=== PATIENT | female | born 1960 | race Caucasian/White ===

== ENCOUNTER → 2019-12-22 | Outpatient (CLI) | payer BC ==
[~2019-12-22] MED LIST: ACET-1600 PO; ASCO100018 PO; ATOR40TA78 PO; CALC250T PO; CHOL10003 PO; CRAN1CAP13 PO; ESCI20TA10 PO; GABA600T7 PO; Iron PO; MULT-658 PO; OMEP-110 PO; VENL37.52 PO
[2019-12-22 14:31] LABS: BASOPHILS % (AUTO) 0 % (0-1); EOSINOPHILS % (AUTO) 2 % (1-7); LYMPHOCYTES % (AUTO) 32 % (22-44); MEAN CORPUSCULAR HEMOGLOBIN 30.7 pg (27.0-34.8); MEAN CORPUSCULAR HGB CONC 33.3 g/dL (32.4-35.8); MEAN PLATELET VOLUME 7.8 fL (7.4-10.4); MONOCYTES % (AUTO) 12 % (2-9); NEUTROPHILS % (AUTO) 53 % (42-75); PLATELET COUNT 299 x10^3/uL (130-400); RED BLOOD COUNT 4.77 x10^6/uL (3.82-5.3); RED CELL DISTRIBUTION WIDTH 13.2 % (9.6-15.2)
[2019-12-22 14:32] LABS: MD NO
[2019-12-22 14:42] LABS: INTERNATIONAL NORMALIZED RATIO 1.01 (0.93-1.1); PROTHROMBIN TIME 10.7 Seconds (9.6-11.5)
[2019-12-22 14:43] LABS: ALANINE AMINOTRANSFERASE 35 U/L (12-78); ALBUMIN 3.6 g/dL (3.4-5.0); ANION GAP 4 mmol/L (5-15); CALCIUM 9.6 mg/dL (8.5-10.1); CHLORIDE 110 mmol/L (98-107); CREATININE 0.94 mg/dL (0.55-1.02)
[2019-12-22 14:44] LABS: ALKALINE PHOSPHATASE 163 U/L (45-117); BILIRUBIN,TOTAL 0.4 mg/dL (0.2-1.0); TOTAL PROTEIN 7.4 g/dL (6.4-8.2)
== END | disposition home or self-care (01) ==
LOC: STAR 13:09
PROVIDERS: ATTEND Obstetrics & Gynecology
DX: Z01.812 Encounter for preprocedural laboratory examination (principal); Z20.828 Contact with and (suspected) exposure to other viral communicable diseases; R19.09 Other intra-abdominal and pelvic swelling, mass and lump; N83.201 Unspecified ovarian cyst, right side; I44.7 Left bundle-branch block, unspecified
CPT/HCPCS: 36415; 71046; 80053; 85025; 85610; 85730; 86304; 87635; 93005

== ENCOUNTER 2019-12-27 05:32 | Day surgery (SDC) | payer BC ==
[~2019-12-27] VITALS: Ht 165.1 cm; Wt 128.1 kg
[2019-12-27 06:38] VITALS: BP 174/102
[2019-12-27] MEDS ORDERED: MIDAZOLAM 1 MG/ML, 2ML ONE (06:42)
[2019-12-27] MEDS ORDERED: FENTANYL PF 250 MCG/5ML ONE ×3 (06:43→09:11)
[2019-12-27] MEDS ORDERED: PHENYLEPHRINE 10 MG/ML ONE (06:49)
[2019-12-27] MEDS ORDERED: BUPIVACAINE/PF 0.25% ONE (06:56)
[2019-12-27] MEDS ORDERED: HEPARIN 1,000 UNITS/ML, 10ML ONE (06:57)
[2019-12-27] MEDS ORDERED: EPINEPHRINE 1 MG/ML, 1ML ONE (06:57)
[2019-12-27] MEDS ORDERED: INDOCYANINE GREEN 25 MG VIAL ONE (06:57)
[2019-12-27] MEDS ORDERED: CEFOTETAN PMX 2GM/50ML 50 ML IVPB ONE (07:00)
[2019-12-27] MEDS ORDERED: CHLORHEXIDINE 15 ML UDC MM ONE (07:00)
[2019-12-27] MEDS ORDERED: LACTATED RINGERS 1,000 ML IV SCH (07:00)
[2019-12-27 07:12] VITALS: BP 177/77
[2019-12-27] MEDS ORDERED: HYDROcodone/APAP 7.5-325MG/15ML UDC PO PRN (07:30)
[2019-12-27] MEDS ORDERED: PROMETHAZINE 25 MG/ML, 1ML IVPush PRN (07:30)
[2019-12-27] MEDS ORDERED: HALOPERIDOL 5 MG/ML IV PRN (07:30)
[2019-12-27] MEDS ORDERED: FENTANYL PF 100 MCG/2ML IV PRN (07:30)
[2019-12-27] MEDS ORDERED: MEPERIDINE/PF 25MG/0.5ML IVPush PRN (07:30)
[2019-12-27] MEDS ORDERED: OXYcodone 5 MG/5 ML ORAL.SOL UDC PO PRN (07:30)
[2019-12-27] MEDS ORDERED: HYDROmorphone 1 MG/ML, 1ML INJ IVPush PRN (07:30)
[2019-12-27] MEDS ORDERED: hydrALAzine 20 MG/ML, 1ML IV PRN (07:30)
[2019-12-27] MEDS ORDERED: ACETAMINOPHEN 325 MG TABLET PO PRN (07:30)
[2019-12-27] MEDS ORDERED: morphine SULFATE 10 MG/ML, 1ML IVPush PRN (07:30)
[2019-12-27] MEDS ORDERED: GLYCOPYRROLATE 0.2MG/1ML, 5ML ONE (08:16)
[2019-12-27] MEDS ORDERED: ROCURONIUM 10MG/ML,5ML ONE (08:16)
[2019-12-27] MEDS ORDERED: CEFAZOLIN 1,000 MG ONE (08:16)
[2019-12-27] MEDS ORDERED: PROPOFOL 10 MG/ML, 20ML ONE (08:16)
[2019-12-27] MEDS ORDERED: ONDANSETRON 2MG/ML, 2ML ONE (08:16)
[2019-12-27] MEDS ORDERED: DEXAMETHASONE 4 MG/ML, 1ML ONE (08:16)
[2019-12-27] MEDS ORDERED: NEOSTIGMINE 1 MG/ML, 10ML ONE (08:16)
[2019-12-27] MEDS ORDERED: KETOROLAC 30 MG/1 ML ONE (09:24)
[2019-12-27] MEDS ORDERED: LABETALOL 5MG/ML, 20ML ONE (10:13)
[2019-12-27] MEDS: LABETALOL 5MG/ML, 20ML IV PRN ×3 (10:14→10:46)
[2019-12-27] MEDS ORDERED: MEPERIDINE/PF 25MG/ML,1ML ONE (10:21)
[2019-12-27] MEDS ORDERED: hydrALAzine 20 MG/ML, 1ML ONE (11:05)
== END 2019-12-27 14:10 | disposition home or self-care (01) ==
LOC: OUT 05:32
PROVIDERS: ATTEND Obstetrics & Gynecology
DX: D27.0 Benign neoplasm of right ovary (principal); N80.0 Endometriosis of uterus; N73.6 Female pelvic peritoneal adhesions (postinfective); E78.5 Hyperlipidemia, unspecified; K21.9 Gastro-esophageal reflux disease without esophagitis; I10 Essential (primary) hypertension; E11.9 Type 2 diabetes mellitus without complications; F32.9 Major depressive disorder, single episode, unspecified; E03.9 Hypothyroidism, unspecified; E66.01 Morbid (severe) obesity due to excess calories; Z68.42 Body mass index [BMI] 45.0-49.9, adult; Z79.899 Other long term (current) drug therapy; Z85.820 Personal history of malignant melanoma of skin; Z87.891 Personal history of nicotine dependence; Z96.653 Presence of artificial knee joint, bilateral; Z98.890 Other specified postprocedural states; Z80.41 Family history of malignant neoplasm of ovary
CPT/HCPCS: 36415; 58552; 86850; 86900; 86923; 88305; 88307; 88331; J0171; J0360; J0690; J1100; J1644; J1885; J2175; J2250; J2370; J2405; J2704; J2710; J3010; J7120; S2900